=== PATIENT | female | born 1960 | race African-American/Black ===

== ENCOUNTER 2022-11-08 05:20 | Emergency (ER) | payer MEDICARE ==
[2022-11-08 06:40] LABS: Anion Gap 17 mmol/L (10-20); BUN (Urea Nitrogen) 18 mg/dL (9.8-20.1); Calc. Creatinine Clearance 0 mL/min (70-130); Calcium 9.6 mg/dL (7.8-10.44); Carbon Dioxide 23 mmol/L (23-31); Chloride 103 mmol/L (98-107); Estimated GFR 59; Glucose 109 mg/dL (80-115); Magnesium 1.4 mg/dL (1.6-2.6); Potassium 2.8 mmol/L (3.5-5.1); Sodium 140 mmol/L (136-145)
[2022-11-08] MEDS ORDERED: Magnesium 2 GM/50 ML BAG (IN WATER) ONE (06:47)
[2022-11-08 06:53] LABS: #Monocytes 0.2 10x3/uL (0.0-1.1); #Neutrophils 2.8 10x3/uL (1.5-8.4); %Basophils 0.3 % (0.0-2.0); %Eosinophils 0.5 % (0.0-6.0); %Lymphocytes 21.9 % (18.0-47.0); %Monocytes 5.9 % (0.0-10.0); %Neutrophils 71.1 % (40.0-75.0); Hemoglobin 11.8 g/dL (12.0-15.5); Mean Corpuscular Hemoglobin 24.9 pg (27.0-33.0); Mean Corpuscular Volume 75.7 fl (81.6-98.3); Platelet Count 93 10x3/uL (150-450); RBC Distribution Width 16.2 % (11.5-14.5); Red Blood Cell (RBC) Count 4.73 10x6/uL (3.90-5.03); White Blood Cell (WBC) Count 3.9 10x3/uL (3.5-10.5)
[2022-11-08 06:54] LABS: Large Platelets SLIGHT; Platelet Morphology Comment Appears Decreased; RBC Morphology Normal
[2022-11-08 06:58] LABS: Free T4 (Free Thyroxine) 1.16 ng/dL (0.70-1.48); Thyroid Stimulating Hormone 0.3957 uIU/mL (0.35-4.94)
[2022-11-08] MEDS ORDERED: Potassium Chloride 20 MEQ TAB ONE (07:41)
== END 2022-11-08 08:30 | disposition home or self-care (01) ==
LOC: CSHERS 05:20
DX: R00.2 Palpitations (principal); I10 Essential (primary) hypertension; E87.6 Hypokalemia; E83.42 Hypomagnesemia; E78.5 Hyperlipidemia, unspecified; E11.9 Type 2 diabetes mellitus without complications; E03.9 Hypothyroidism, unspecified; Z79.899 Other long term (current) drug therapy
CPT/HCPCS: 80048; 83735; 84439; 84443; 84484; 85025; 93005; 96365; J3475